=== PATIENT | female | born 1990 | race African-American/Black ===

== ENCOUNTER 2022-01-19 13:43 | Observation (INO) | payer BC ==
[2022-01-19 14:03] VITALS: BMI 42.7
[2022-01-19] MEDS ORDERED: FLU VACC QS2022-23(6MOS UP)/PF 60 MCG/0.5 ML SYRINGE IM ONE (14:30)
[2022-01-19] MEDS ORDERED: Dextrose 5% in Water 1,000 ML IV PRN (14:52)
[2022-01-19] MEDS ORDERED: Dextrose 50% Abboject 50 ML SYRINGE SLOW IVP PRN (14:52)
[2022-01-19 15:55] LABS: ALT (SGPT) 18 U/L (8-55); AST (SGOT) 12 U/L (5-34); Albumin 3.6 g/dL (3.5-5.0); Alkaline Phosphatase 85 U/L (40-110); Anion Gap 10 mmol/L (10-20); BUN (Urea Nitrogen) 12 mg/dL (7.0-18.7); Bilirubin, Total 0.2 mg/dL (0.2-1.2); Calc. Creatinine Clearance 199 mL/min (70-130); Calcium 9.6 mg/dL (7.8-10.44); Carbon Dioxide 23 mmol/L (22-29); Chloride 103 mmol/L (98-107); Estimated GFR 105; Globulin 4.1 g/dL (2.4-3.5); Glucose 158 mg/dL (70-105); Potassium 4.1 mmol/L (3.5-5.1); Protein, Total 7.7 g/dL (6.0-8.3); Sodium 132 mmol/L (136-145)
[2022-01-19 16:06] LABS: Creatinine, Urine 145.36 mg/dL (47-110); Protein, Urine Random Quant Less than 10 mg/dL (1-14)
[2022-01-19 17:37] LABS: SARS-CoV-2 NAA Rapid Test Not Detected (NotDetected)
[2022-01-19 20:12] LABS: Hemoglobin A1c 9.3 % (4.0-6.0)
[2022-01-19] MEDS ORDERED: HumaLOG 300 UNITS/3 ML VIAL SC SCH (21:00)
[2022-01-19] MEDS: Lantus 1000 UNITS/10 ML VIAL SC SCH (21:24)
[2022-01-20] MEDS: HumaLOG 300 UNITS/3 ML VIAL SC SCH ×3 (08:26→17:05)
[2022-01-20] MEDS: Lantus 1000 UNITS/10 ML VIAL SC SCH (08:28)
[2022-01-20] MEDS ORDERED: Prenatal Vitamin 1 TAB PO SCH (09:00)
[2022-01-20 15:20] LABS: Urine Total Volume 2150 mL (600-1600)
[2022-01-20 15:32] LABS: Protein, Urine Less than 10 mg/dL (1-14)
[2022-01-20 19:51] VITALS: BP 115/64; TEMP 98.5
== END 2022-01-20 19:30 | disposition home health service (06) ==
LOC: INTOOBSV 13:43 → CSHPP 13:43
PROVIDERS: ADMIT Emergency Medicine; ATTEND Emergency Medicine
DX: O24.414 Gestational diabetes mellitus in pregnancy, insulin controlled (principal); O99.211 Obesity complicating pregnancy, first trimester; E66.9 Obesity, unspecified; Z3A.08 8 weeks gestation of pregnancy; Z79.4 Long term (current) use of insulin; Z79.899 Other long term (current) drug therapy
CPT/HCPCS: 36415; 36416; 80053; 82010; 82570; 83036; 84144; 84156; 84443; 84702; G0378; J1815; U0002